=== PATIENT | male | born 1975 | race American Indian/Alaskan Native ===

== ENCOUNTER 2017-01-31 13:35 | Emergency (ER) | payer MEDICARE ==
[2017-01-31 14:04] VITALS: BP 127/82
[2017-01-31 15:29] LABS: Basophils % (Auto) 1.1 % (0.0-1.8); Eosinophils % (Auto) 0.9 % (0.0-4.3); Hematocrit 42.4 % (35.5-45.6); Hemoglobin 13.6 gm/dl (11.8-15.2); Mean Corpuscular HGB Conc 32 % (32-34); Mean Corpuscular Hemoglobin 29 pg (28-32); Mean Corpuscular Volume 91 fl (84-94); Platelet Count 190 K/mm3 (140-440); Red Blood Count 4.67 M/mm3 (3.65-5.03); Red Cell Distribution Width 15.3 % (13.2-15.2); White Blood Count 5.2 K/mm3 (4.5-11.0)
[2017-01-31 15:34] LABS: Anion Gap 17 mmol/L; BUN/Creatinine Ratio 13.75; Blood Urea Nitrogen 11 mg/dL (9-20); Carbon Dioxide 26 mmol/L (22-30); Chloride 102.8 mmol/L (98-107); Glucose 93 mg/dL (75-100); Potassium 4.1 mmol/L (3.6-5.0); Sodium 142 mmol/L (137-145)
== END 2017-01-31 19:30 | disposition left against medical advice (07) ==
LOC: MERGE 13:35 → ED 13:35
DX: F29 Unspecified psychosis not due to a substance or known physiological condition (principal); Z53.21 Procedure and treatment not carried out due to patient leaving prior to being seen by health care provider
CPT/HCPCS: 36415; 80048; 85025; G0480; 80320

== ENCOUNTER 2017-02-03 09:59 | Emergency (ER) | payer MEDICARE ==
[2017-02-03 12:56] VITALS: BP 159/110
--- NOTE | 2017-02-03 13:01 | Emergency Department Report ---
Chief Complaint: Medical Clearance Stated Complaint: LAB CHECK Time Seen by Provider: 02/03/17 12:53 - HPI History of Present Illness: PT states he needs his levels checked. PT states he is from [place]. PT states he got his medication in [place] - Exam Physical Exam: pt tangential MSE screening note: Focused history and physical exam performed. Due to findings the following was ordered: labs ED Disposition for MSE Condition: Stable
[2017-02-03 13:59] LABS: Basophils % (Auto) 0.5 % (0.0-1.8); Eosinophils % (Auto) 0.8 % (0.0-4.3); Hematocrit 43.8 % (35.5-45.6); Hemoglobin 14.8 gm/dl (11.8-15.2); Mean Corpuscular HGB Conc 34 % (32-34); Mean Corpuscular Hemoglobin 30 pg (28-32); Mean Corpuscular Volume 89 fl (84-94); Platelet Count 187 K/mm3 (140-440); Red Blood Count 4.93 M/mm3 (3.65-5.03); Red Cell Distribution Width 15.2 % (13.2-15.2); White Blood Count 5.5 K/mm3 (4.5-11.0)
[2017-02-03 14:26] LABS: Alanine Aminotransferase 10 units/L (7-56); Albumin 4.7 g/dL (3.9-5); Albumin/Globulin Ratio 1.6 %; Alkaline Phosphatase 104 units/L (35-129); Anion Gap 19 mmol/L; Blood Urea Nitrogen 10 mg/dL (9-20); Calcium 9.3 mg/dL (8.4-10.2); Carbon Dioxide 26 mmol/L (22-30); Chloride 98.9 mmol/L (98-107); Glucose 93 mg/dL (75-100); Potassium 4.2 mmol/L (3.6-5.0); Sodium 140 mmol/L (137-145); Total Protein 7.7 g/dL (6.3-8.2)
[2017-02-03 14:46] LABS: Salicylate < 0.3 mg/dL (2.8-20.0)
== END 2017-02-03 20:40 | disposition left against medical advice (07) ==
LOC: ED 09:59
DX: Z53.21 Procedure and treatment not carried out due to patient leaving prior to being seen by health care provider (principal)
CPT/HCPCS: 36415; 80053; 80185; 85025; G0480; 80177; 80320

== ENCOUNTER 2017-02-05 11:39 | Emergency (ER) | payer MEDICARE ==
[2017-02-05 12:09] VITALS: BP 134/96
== END 2017-02-05 12:00 | disposition left against medical advice (07) ==
LOC: ED 11:39
DX: R11.0 Nausea (principal); Z53.21 Procedure and treatment not carried out due to patient leaving prior to being seen by health care provider

== ENCOUNTER 2017-02-06 00:13 | Emergency (ER) | payer MEDICARE ==
[2017-02-06 00:30] VITALS: BP 135/76
[2017-02-06 00:58] LABS: Basophils % (Auto) 0.6 % (0.0-1.8); Eosinophils % (Auto) 2.2 % (0.0-4.3); Hematocrit 40.2 % (35.5-45.6); Mean Corpuscular HGB Conc 32 % (32-34); Mean Corpuscular Hemoglobin 29 pg (28-32); Mean Corpuscular Volume 91 fl (84-94); Platelet Count 194 K/mm3 (140-440); Red Blood Count 4.43 M/mm3 (3.65-5.03); Red Cell Distribution Width 15.2 % (13.2-15.2)
[2017-02-06 01:14] LABS: Alanine Aminotransferase 9 units/L (7-56); Albumin 4.3 g/dL (3.9-5); Albumin/Globulin Ratio 1.5 %; Alkaline Phosphatase 86 units/L (35-129); Anion Gap 17 mmol/L; BUN/Creatinine Ratio 15.55; Bilirubin,Total < 0.20 mg/dL (0.1-1.2); Blood Urea Nitrogen 14 mg/dL (9-20); Calcium 8.9 mg/dL (8.4-10.2); Carbon Dioxide 27 mmol/L (22-30); Glucose 94 mg/dL (75-100); Lipase 89 units/L (13-60); Potassium 3.8 mmol/L (3.6-5.0); Sodium 144 mmol/L (137-145); Total Protein 7.1 g/dL (6.3-8.2)
[2017-02-06 01:23] LABS: Bacteria,Urine 1+ /HPF (Negative); Bilirubin,Urine NEG (Negative); Blood,Urine NEG (Negative); Ketones,Urine TR mg/dL (Negative); Leukocyte Esterase,Urine TR (Negative); Mucus,Urine 3+ /HPF; Nitrite,Urine NEG (Negative); RBC,Urine < 1.0 /HPF (0.0-6.0); Urobilinogen,Urine < 2.0 mg/dL (<2.0)
== END 2017-02-06 02:30 | disposition left against medical advice (07) ==
LOC: ED 00:13
DX: R10.9 Unspecified abdominal pain (principal); Z53.21 Procedure and treatment not carried out due to patient leaving prior to being seen by health care provider
CPT/HCPCS: 36415; 80053; 81001; 83690; 85025

== ENCOUNTER 2017-02-06 17:50 | Emergency (ER) | payer MEDICARE | END 2017-02-06 18:07 | disposition home or self-care (01) | LOC: ED 17:50 | DX: M54.9 Dorsalgia, unspecified (principal); Z53.21 Procedure and treatment not carried out due to patient leaving prior to being seen by health care provider ==

== ENCOUNTER 2017-02-10 11:05 | Emergency (ER) | payer MEDICARE ==
[2017-02-10 11:35] VITALS: BP 108/60
[2017-02-10] MEDS ORDERED: DILANTIN PO ONE (13:35)
--- NOTE | 2017-02-10 14:08 | Emergency Department Report ---
HPI - General Chief Complaint: Seizure Time Seen by Provider: 02/10/17 12:17 - HPI HPI: The patient is a 41-year-old male who presents for evaluation of seizure. The patient states that 1-2 hours prior to arrival he experienced a seuzure. He complains of mild generalized weakness and lightheadedness since, lightheadedness moderate severity, exacerbated with standing and head position changes, and improved with supine positioning. The patient denies fever, head injury, headache, neck pain, neck stiffness, vision or hearing changes, smell or taste changes, paresthesias, facial drooping, slurred speech, urine or bowel incontinence or retention, or other focal neurological deficit. ED Past Medical Hx - Past Medical History Hx Hypertension: Yes Hx Seizures: Yes Hx Psychiatric Treatment: Yes (Schizophrenia) Hx Asthma: Yes Additional medical history: Psych - Surgical History Additional Surgical History: Pt states he never had any surgeries. - Social History Smoking Status: Current Every Day Smoker - Medications Home Medications: Home Medications Medication Instructions Recorded Confirmed Last Taken Type Divalproex Dr [Depakote Dr] 500 mg PO BID #60 tablet 05/18/16 08/01/16 07/31/16 Rx Phenytoin [Dilantin] 300 mg PO QHS #30 capsule.er 02/10/17 Unknown Rx ED Review of Systems ROS: Stated complaint: SEIZURES Other details as noted in HPI Constitutional: reports dizziness denies: fever ENT: denies: throat or neck pain Respiratory: denies: cough, shortness of breath Cardiovascular: denies: chest pain Endocrine: denies unexplained weight loss or gain Gastrointestinal: denies: abdominal pain, nausea Genitourinary: denies: dysuria Musculoskeletal: denies: leg swelling Skin: denies: rash Neurological: reports seizure denies: headache Hematological/Lymphatic: denies: easy bleeding or easy bruising Psych: denies sadness or hopelessness Physical Exam - Physical Exam Vital Signs: Vital Signs 02/10/17 11:34 Temperature 98.2 F Pulse Rate 102 H Respiratory 16 Rate Blood Pressure 108/60 [Left] Physical Exam: General: well-nourished, well-developed, no acute distress Head: Normocephalic, atraumatic Eyes: normal sclera ENT: Mucous membranes are pale and dry Neck: No neck stiffness, no cervical adenopathy Respiratory: Breath sounds equal bilaterally, no wheezing, rales, or rhonchi Cardio: S1 and S2 present, no murmurs, rubs, gallops, capillary refill is delayed Abdomen: Normoactive bowel sounds, soft abdomen, no rigidity, no guarding or rebound tenderness Chest WALL/Back: No tenderness to palpation of the chest wall, no CVA tenderness with percussion Musc: No pitting edema Skin: No rash Neuro: no facial drooping, normal speech Psych: Normal affect ED Course Vital Signs 02/10/17 11:34 Temperature 98.2 F Pulse Rate 102 H Respiratory 16 Rate Blood Pressure 108/60 [Left] ED Medical Decision Making - Medical Decision Making The patient was seen and examined by myself. The patient is placed on a cardiac cath tech and continuous pulse ox. On initial evaluation, the patient was found to be in no distress. Evaluation orders were placed. The patient refused blood draw and antiepileptics for treatment of his seizure. The patient is alert, oriented 3, competent to make medical decisions. The patient is informed of risks and benefits of treatment versus refusal treatment. He is able to express information communicated to him. The patient signs out AGAINST MEDICAL ADVICE. Critical care attestation.: If time is entered above; I have spent that time in minutes in the direct care of this critically ill patient, excluding procedure time. ED Disposition Clinical Impression: Seizure, Dehydration, Orthostatic dizziness Disposition: DC-07 LEFT AGAINST MED ADVICE Is pt being admited?: No Does the pt Need Aspirin: No Condition: Stable Instructions: Epilepsy (ED), Dehydration (ED) Prescriptions: Phenytoin [Dilantin] 300 mg PO QHS #30 capsule.er Referrals: PRIMARY CARE, [Primary Care Provider] - 3-5 Days Time of Disposition: 14:04
== END 2017-02-10 14:39 | disposition left against medical advice (07) ==
LOC: ED 11:05
DX: R56.9 Unspecified convulsions (principal); E86.0 Dehydration; R42 Dizziness and giddiness; F20.9 Schizophrenia, unspecified; J45.909 Unspecified asthma, uncomplicated; F17.200 Nicotine dependence, unspecified, uncomplicated
CPT/HCPCS: 99284

== ENCOUNTER 2017-02-10 16:02 | Emergency (ER) | payer MEDICARE ==
[2017-02-10 16:20] VITALS: BP 150/98
--- NOTE | 2017-02-10 18:28 | Emergency Department Report ---
Chief Complaint: Seizure Stated Complaint: SYNCOPE Time Seen by Provider: 02/10/17 18:28 - HPI History of Present Illness: Patient here reports that he is here for seizures. Patient was here yesterday and he left and refused lab work. He takes Dilantin and Depakote. he said he feels shaky. He said the shakiness from seizures. Patient was seen by provider yesterday and he refused treatment. Denies any nausea or vomiting. Denies any fever or chills. Denies any headache. - ROS Review of Systems: All systems are negative unless stated in HPI above - Exam Vital Signs: Vital Signs 02/10/17 16:17 Temperature 98.4 F Pulse Rate 98 H Respiratory 16 Rate Blood Pressure 150/98 O2 Sat by Pulse 98 Oximetry Physical Exam: Gen.: This is a 41-year-old male well-nourished well-developed in no acute distress. Psych: Patient is calm. Normal mood. Flat affect. Denies any suicide or homicide ideation. Denies any hallucination MSE screening note: Focused history and physical exam performed. Due to findings the following was ordered:see mdm ED Medical Decision Making - Medical Decision Making MDM: Patient screened by provider in triage area. Appropriate protocol initiated and patient to be seen in main ED by ED Disposition for MSE Condition: Stable Referrals: PRIMARY CARE, [Primary Care Provider] - 3-5 Days
[2017-02-10 23:24] LABS: Basophils % (Auto) 0.5 % (0.0-1.8); Eosinophils % (Auto) 0.6 % (0.0-4.3); Hematocrit 43.8 % (35.5-45.6); Hemoglobin 14.3 gm/dl (11.8-15.2); Mean Corpuscular HGB Conc 33 % (32-34); Mean Corpuscular Hemoglobin 30 pg (28-32); Mean Corpuscular Volume 90 fl (84-94); Platelet Count 218 K/mm3 (140-440); Red Blood Count 4.85 M/mm3 (3.65-5.03); White Blood Count 5.7 K/mm3 (4.5-11.0)
[2017-02-10 23:33] LABS: Anion Gap 21 mmol/L; BUN/Creatinine Ratio 15.55; Blood Urea Nitrogen 14 mg/dL (9-20); Calcium 9.3 mg/dL (8.4-10.2); Carbon Dioxide 22 mmol/L (22-30); Chloride 102.3 mmol/L (98-107); Glucose 82 mg/dL (75-100); Potassium 4.1 mmol/L (3.6-5.0); Sodium 141 mmol/L (137-145)
[2017-02-10 23:47] LABS: Valproate 42.8 ug/mL (50-100)
[2017-02-11] MEDS ORDERED: DILANTIN PO ONE (03:11)
--- NOTE | 2017-02-11 03:13 | Emergency Department Report ---
ED General Adult HPI - General Chief complaint: Seizure Stated complaint: SYNCOPE Time Seen by Provider: 02/10/17 18:28 Source: patient, RN notes reviewed, old records reviewed Mode of arrival: Ambulatory Limitations: No Limitations - History of Present Illness Initial comments: This is a 41-year-old male, the patient is previously known to me. Patient has a past medical history of hypertension, seizure, schizophrenia, known to be noncompliant with his antiepileptic drug therapy, phenytoin and Depakote. Patient seen in the ER a few days ago for similar symptoms. Patient is currently sleeping on stretcher, and denies all complaints, and tells me to "leave me the f*uck alone." The patient did indicate that he is not having headache, chest pain, abdominal pain, homicidality or suicidality. He cannot describe exacerbating or relieving factors. -: unknown Associated Symptoms: denies other symptoms - Related Data Previous Rx's Medication Instructions Recorded Last Taken Type Divalproex Dr [Depakote Dr] 500 mg PO BID #60 tablet 02/11/17 Unknown Rx Phenytoin [Dilantin] 300 mg PO QHS #30 capsule.er 02/11/17 Unknown Rx Allergies Allergy/AdvReac Type Severity Reaction Status Date / Time No Known Allergies Allergy Verified 12/17/16 09:59 ED Review of Systems ROS: Stated complaint: SYNCOPE Other details as noted in HPI Constitutional: denies: fever Respiratory: denies: cough Cardiovascular: denies: chest pain Gastrointestinal: denies: abdominal pain Genitourinary: denies: dysuria Neurological: denies: confusion Psychiatric: denies: homicidal thoughts, suicidal thoughts ED Past Medical Hx - Past Medical History Previous Medical History?: Yes Hx Hypertension: Yes Hx Seizures: Yes Hx Psychiatric Treatment: Yes (Schizophrenia) Hx Asthma: Yes Additional medical history: Psych - Surgical History Past Surgical History?: No Additional Surgical History: Pt states he never had any surgeries. - Social History Smoking Status: Current Every Day Smoker Substance Use Type: None - Medications Home Medications: Home Medications Medication Instructions Recorded Confirmed Last Taken Type Divalproex Dr [Depakote Dr] 500 mg PO BID #60 tablet 02/11/17 Unknown Rx Phenytoin [Dilantin] 300 mg PO QHS #30 capsule.er 02/11/17 Unknown Rx ED Physical Exam - General Limitations: No Limitations General appearance: alert, in no apparent distress - Head Head exam: Present: atraumatic, normocephalic - Eye Eye exam: Present: normal appearance, EOMI. Absent: nystagmus - ENT ENT exam: Present: normal exam, normal orophraynx, mucous membranes moist, normal external ear exam - Neck Neck exam: Present: normal inspection, full ROM - Respiratory Respiratory exam: Present: normal lung sounds bilaterally. Absent: respiratory distress - Cardiovascular Cardiovascular Exam: Present: regular rate, normal rhythm, normal heart sounds. Absent: systolic murmur, diastolic murmur, rubs, gallop - GI/Abdominal GI/Abdominal exam: Present: soft, normal bowel sounds. Absent: distended, tenderness, guarding, rebound, rigid, pulsatile mass - Rectal Rectal exam: Present: deferred - Extremities Exam Extremities exam: Present: normal inspection, full ROM, normal capillary refill. Absent: tenderness, calf tenderness - Back Exam Back exam: Present: normal inspection, full ROM. Absent: tenderness, CVA tenderness (R), CVA tenderness (L), muscle spasm, paraspinal tenderness, vertebral tenderness - Neurological Exam Neurological exam: Present: alert, normal gait, other (Extraocular movements intact. Tongue midline. No facial droop. Facial sensation intact to light touch in the V1, V2, V3 distribution bilaterally. 5 and 5 strength in 4 extremities.. Sensation is intact to light touch in 4 extremities.). Absent: motor sensory deficit - Psychiatric Psychiatric exam: Present: agitated. Absent: homicidal ideation, suicidal ideation - Skin Skin exam: Present: warm, dry, intact, normal color. Absent: rash ED Course Vital Signs 02/10/17 16:17 Temperature 98.4 F Pulse Rate 98 H Respiratory 16 Rate Blood Pressure 150/98 O2 Sat by Pulse 98 Oximetry ED Medical Decision Making - Lab Data Result diagrams: 02/10/17 23:01 02/10/17 23:01 Vital Signs 02/10/17 16:17 Temperature 98.4 F Pulse Rate 98 H Respiratory 16 Rate Blood Pressure 150/98 O2 Sat by Pulse 98 Oximetry Lab Results 02/10/17 02/10/17 02/10/17 Range/Units 23:01 23:01 23:01 WBC 5.7 (4.5-11.0) K/mm3 RBC 4.85 (3.65-5.03) M/mm3 Hgb 14.3 (11.8-15.2) gm/dl Hct 43.8 (35.5-45.6) % MCV 90 (84-94) fl MCH 30 (28-32) pg MCHC 33 (32-34) % RDW 15.0 (13.2-15.2) % Plt Count 218 (140-440) K/mm3 Lymph % (Auto) 27.4 (13.4-35.0) % Dawson % (Auto) 10.2 H (0.0-7.3) % Eos % (Auto) 0.6 (0.0-4.3) % Baso % (Auto) 0.5 (0.0-1.8) % Lymph # 1.6 (1.2-5.4) K/mm3 Dawson # 0.6 (0.0-0.8) K/mm3 Eos # 0.0 (0.0-0.4) K/mm3 Baso # 0.0 (0.0-0.1) K/mm3 Seg Neutrophils % 61.3 (40.0-70.0) % Seg Neutrophils # 3.5 (1.8-7.7) K/mm3 Sodium 141 (137-145) mmol/L Potassium 4.1 (3.6-5.0) mmol/L Chloride 102.3 (98-107) mmol/L Carbon Dioxide 22 (22-30) mmol/L Anion Gap 21 mmol/L BUN 14 (9-20) mg/dL Creatinine 0.9 (0.8-1.5) mg/dL Estimated GFR > 60 ml/min BUN/Creatinine Ratio 15.55 % Glucose 82 (75-100) mg/dL Calcium 9.3 (8.4-10.2) mg/dL Phenytoin 3.8 L (10.0-20.0) ug/mL Valproic Acid 42.8 L (50-100) ug/mL - Medical Decision Making Differential diagnosis: Mood disorder, medication refill, medication noncompliance Assessment and plan: 41-year-old male with no witnessed seizure activity, with subtherapeutic antiepileptic drug levels. He is belligerent to staff, but he is not homicidal or suicidal, walks with a steady gait, and has had no convulsive activity. He is given prescriptions for his antiepileptic drug medications. He does not appear to be any emergent condition at this time, she had laboratory work a few days ago which was also unremarkable, his physical exam is unremarkable, and he walks with a steady gait. I see no indication to place the patient on a 1013, he is given discharge instructions. Critical care attestation.: If time is entered above; I have spent that time in minutes in the direct care of this critically ill patient, excluding procedure time. ED Disposition Clinical Impression: Medication refill, History of seizure Disposition: - TO HOME OR SELFCARE Is pt being admited?: No Does the pt Need Aspirin: No Condition: Stable Instructions: Recurrent Seizures Adult (ED) Additional Instructions: Take the seizure medications as directed. Follow up with a primary care doctor or neurology specialist within the next 7-[address] or operate motor vehicles until cleared by a primary care doctor or neurology specialist. Return to the ER right away with homicidality, suicidality, recurrent seizures, fevers, chills, confusion, intractable nausea or vomiting, inability to tolerate liquid feeds. Prescriptions: Phenytoin [Dilantin] 300 mg PO QHS #[address] [Depakote Dr] 500 mg PO BID #60 tablet Referrals: PRIMARY CARE, [Primary Care Provider] - 3-5 Days BETZY MAURICE MD [Staff Physician] - 3-5 Days LORETO DUFF MD [Staff Physician] - 3-5 Days ZOLTAN ELLIS MD [Staff Physician] - 3-5 Days
== END 2017-02-11 03:29 | disposition home or self-care (01) ==
LOC: ED 16:02
DX: Z76.0 Encounter for issue of repeat prescription (principal); R56.9 Unspecified convulsions; I10 Essential (primary) hypertension; J45.909 Unspecified asthma, uncomplicated; F17.200 Nicotine dependence, unspecified, uncomplicated
CPT/HCPCS: 36415; 80048; 80164; 80185; 85025; 99283

== ENCOUNTER 2017-02-17 10:10 | Emergency (ER) | payer MEDICARE | END 2017-02-17 10:11 | disposition left against medical advice (07) | LOC: ED 10:10 | DX: Z53.21 Procedure and treatment not carried out due to patient leaving prior to being seen by health care provider (principal) ==

== ENCOUNTER 2017-02-18 11:24 | Emergency (ER) | payer MEDICARE ==
[2017-02-18 11:37] VITALS: BP 125/87
== END 2017-02-18 11:33 | disposition left against medical advice (07) ==
LOC: ED 11:24
DX: R44.0 Auditory hallucinations (principal); Z53.21 Procedure and treatment not carried out due to patient leaving prior to being seen by health care provider